=== PATIENT | male | born 1985 | race Caucasian/White ===

== ENCOUNTER 2017-01-12 20:02 | Emergency (ER) | payer BC ==
[~2017-01-12] VITALS: Ht 167.6 cm; Wt 82.0 kg
[2017-01-12 20:40] LABS: HEMATOCRIT 48.4 % (38.0-50.0); MCH 28.3 PG (29.0-34.0); MCHC 32.9 G/DL (30.0-36.0); MCV 86.1 FL (86-99); MEAN PLAT.VOLUME 9.7 uM^3 (9.0-12.4); PLATELET COUNT 282 K/uL (156-360); RBC DIS.WIDTH-CV 13.2 % (11.8-14.6); RBC DIS.WIDTH-SD 41.4 % (39-53); RED BLOOD COUNT 5.62 M/uL (4.00-5.50); WHITE BLOOD COUNT 6.9 K/uL (4.1-10.2)
[2017-01-12 20:52] LABS: CHLORIDE 105 mEq/L (99-109); POTASSIUM 3.4 mEq/L (3.7-5.4); SODIUM 143 mEq/L (136-147)
[2017-01-12 20:53] LABS: GLUCOSE 82 mg/dL (70-99)
[2017-01-12 20:55] LABS: ANION GAP 13 MEQ/L (2-14)
[2017-01-12 20:58] LABS: UREA NITROGEN (BUN) 13 mg/dL (9-23)
[2017-01-12 21:01] LABS: TROP-I INTERPRETATION NEGATIVE; TROPONIN-I < 0.01 ng/mL (0.0-0.30)
[2017-01-12 21:03] LABS: GFR ESTIMATE (CALCULATED) > 59 mL/min/
[2017-01-12] MEDS ORDERED: VALIUM5 MG PO (22:31)
[2017-01-12 22:48] VITALS: BP 108/70
== END 2017-01-12 22:28 | disposition home or self-care (01) ==
LOC: EME 20:02 → EXP 20:02 → EME 20:02 → EXP 22:28
DX: R07.9 Chest pain, unspecified (principal); F41.9 Anxiety disorder, unspecified
CPT/HCPCS: 71020; 80048; 84484; 85027; 85379; 93005; 99281; 99283; J1885